=== PATIENT | female | born 2000 | race Caucasian/White ===

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

== ENCOUNTER 2022-07-31 21:40 | Emergency (ER) | payer MEDICAID ==
[2022-07-31 22:29] VITALS: BP 150/67; PULSE 98
== END 2022-07-31 23:05 | disposition home or self-care (01) ==
LOC: FB.ED 21:40
DX: R19.7 Diarrhea, unspecified (principal); Z88.0 Allergy status to penicillin; Z88.8 Allergy status to other drugs, medicaments and biological substances; Z79.899 Other long term (current) drug therapy; Z90.49 Acquired absence of other specified parts of digestive tract
CPT/HCPCS: 36415; 81001; 85025; 99284

== ENCOUNTER 2023-02-01 20:44 | Emergency (ER) | payer MEDICAID ==
[2023-02-01] MEDS ORDERED: Acetaminophen/HYDROcodone 325-5 MG Tab PO ONE (20:45)
[2023-02-01] MEDS ORDERED: Ondansetron 4 MG Tab.DIS PO ONE ×2 (20:45→21:27)
[2023-02-01] MEDS ORDERED: Aluminum Hydroxide/Magnesium Hydroxide Susp 30 ML Cup PO STA (21:27)
[2023-02-01 21:51] LABS: BASOPHILS PERCENT AUTO 0.2 % (0.2-1.5); EOSINOPHILS ABSOLUTE AUTO 0.2 x10-3/uL (0.0-0.8); EOSINOPHILS PERCENT AUTO 1.6 % (0.6-8.1); HEMATOCRIT 34.2 % (34.2-48.2); HEMOGLOBIN 11.8 g/dL (11.4-15.5); LYMPHOCYTES ABSOLUTE AUTO 3.2 x10-3/uL (1.0-4.4); LYMPHOCYTES PERCENT AUTO 24.9 % (18.4-52.1); MEAN CORPUSCULAR HEMOGLOBIN 28.8 pg (23.9-33.9); MEAN CORPUSCULAR HGB CONC 34.5 g/dL (31.9-34.8); MEAN CORPUSCULAR VOLUME 83.5 fL (76.7-100.5); MEAN PLATELET VOLUME 7.2 fL (7.1-12.4); MONOCYTES ABSOLUTE AUTO 0.7 x10-3/uL (0.3-1.0); MONOCYTES PERCENT AUTO 5.6 % (4.4-15.7); NEUTROPHILS ABSOLUTE AUTO 8.7 x10-3/uL (1.5-6.3); NEUTROPHILS PERCENT AUTO 67.7 % (30.8-76.2); PLATELET COUNT,PLT 279 x10(3)uL (151-488); RED BLOOD CELL COUNT 4.09 x10(6)uL (3.60-5.20); RED CELL DISTRIBUTION WIDTH 13.4 % (12.3-16.5); WHITE BLOOD CELL COUNT,WBC 12.8 x10-3/uL (3.0-10.3)
[2023-02-01 21:52] LABS: BLOOD UREA NITROGEN,BUN 8 mg/dL (7-18); CALCIUM 8.8 mg/dL (8.6-10.2); CARBON DIOXIDE,CO2 25 mmol/L (21-32); CHLORIDE,CL 103 mmol/L (100-110); CREATININE 0.5 mg/dL (0.55-1.02); ESTIMATED GFR 137 mL/min (>60); GLUCOSE RANDOM 108 mg/dL (80-116); POTASSIUM,K 3.5 mmol/L (3.5-5.3); SODIUM,NA 137 mmol/L (135-145)
[2023-02-01 21:58] LABS: A/G RATIO 0.9; ALANINE AMINOTRANSFERASE,ALT 22 U/L (12-36); ALBUMIN 3.2 g/dL (3.5-5.2); ALKALINE PHOSPHATASE 61 IU/L (56-112); ASPARTATE AMNIOTRANSFERASE,AST 23 IU/L (5-25); BILIRUBIN TOTAL 0.2 mg/dL (0.1-1.3); PROTEIN TOTAL,TP 6.6 g/dL (6.0-8.0)
[2023-02-01 22:49] VITALS: BP 119/62; PULSE 92
== END 2023-02-01 22:40 | disposition home or self-care (01) ==
LOC: FB.ED 20:44
DX: O99.891 Other specified diseases and conditions complicating pregnancy (principal); R10.11 Right upper quadrant pain; R10.13 Epigastric pain; R11.0 Nausea; Z88.0 Allergy status to penicillin; Z88.1 Allergy status to other antibiotic agents; Z3A.13 13 weeks gestation of pregnancy
CPT/HCPCS: 36415; 80053; 85025; 99284; A9270; Q0162